=== PATIENT | female | born 1955 | race African-American/Black ===

== ENCOUNTER 2017-05-10 22:55 | Inpatient (IN) | payer OTHER, MEDICAID ==
[~2017-05-10] VITALS: Ht 162.6 cm; Wt 49.9 kg
[2017-05-11] MEDS ORDERED: ALBUTEROL (0.083%) 2.5MG/3ML NEB HHN SCH
[2017-05-11] MEDS ORDERED: ONDANSETRON HCL 4MG/2ML VIAL IV SCH
[2017-05-11] MEDS ORDERED: MORPHINE SULFATE 4 MG/ML CPJ (NOT FOR IM USE) IV SCH
[2017-05-11 00:24] LABS: BASOPHILS % 0.6 % (0.0-2.0); EOSINOPHILS % 3.3 % (0.0-5.0); HEMATOCRIT. 48.2 % (36.0-48.0); HEMOGLOBIN. 15.1 g/dL (12.0-16.0); MEAN CORPUSCULAR VOLUME 92.7 fL (81.0-99.0); MONOCYTES % 5.1 % (2.0-8.0); RED CELL DISTRIBUTION WIDTH 14.6 % (11.6-14.6)
[2017-05-11 00:40] LABS: CARBON DIOXIDE 28 mEq/L (21-32); CHLORIDE 102 mEq/L (98-107); TROPONIN I 0.15 ng/mL (0.00-0.04)
[2017-05-11] MEDS: IPRATROPIUM BROMIDE (0.02%) 0.5MG/2.5ML NEB HHN SCH ×3 (01:00→02:46)
[2017-05-11 01:42] LABS: INR 1.2; PARTIAL THROMBOPLASTIN TIME 26.3 sec (23.4-31.0); PROTHROMBIN TIME 12.3 sec (9.4-11.6)
[2017-05-11 02:28] LABS: MEAN PLATELET VOLUME 10.1 fl (7.4-10.4); PLATELET 102 x1000/uL (130-400)
[2017-05-11 09:00] VITALS: BP 135/91
[2017-05-11 12:25] VITALS: BP 116/80
[2017-05-11] MEDS ORDERED: ONDANSETRON HCL 4MG/2ML VIAL IV PRN (13:00)
[2017-05-11] MEDS ORDERED: IPRATROPIUM/ALBUTEROL 0.5-3(2.5)MG/3ML NEB INH PRN (13:00)
[2017-05-11] MEDS: AMLODIPINE 10MG TABLET PO SCH (13:00)
[2017-05-11] MEDS ORDERED: DOCUSATE SODIUM 100MG CAPSULE PO PRN (13:00)
[2017-05-11] MEDS ORDERED: ENOXAPARIN 40MG/0.4ML SYR SUBCUT SCH (13:00)
[2017-05-11] MEDS: ENOXAPARIN 30MG/0.3ML SYR SUBCUT SCH (14:00)
[2017-05-11] MEDS ORDERED: ASPIRIN 81MG EC TABLET PO SCH (14:00)
[2017-05-11 14:19] VITALS: BP 135/91
[2017-05-11] MEDS: IPRATROPIUM/ALBUTEROL 0.5-3(2.5)MG/3ML NEB INH SCH ×2 (16:16→21:19)
[2017-05-11 16:32] VITALS: BP 114/79
[2017-05-11] MEDS: SODIUM CHLORIDE 0.9% 1,000 ML IV SCH (19:05)
[2017-05-11 19:34] VITALS: BP 122/80
[2017-05-12 00:11] VITALS: BP 123/69
[2017-05-12] MEDS: IPRATROPIUM/ALBUTEROL 0.5-3(2.5)MG/3ML NEB INH SCH ×4 (02:29→22:05)
[2017-05-12 04:44] VITALS: BP 102/62
[2017-05-12] MEDS: SODIUM CHLORIDE 0.9% 1,000 ML IV SCH (05:40)
[2017-05-12 07:00] LABS: HEMATOCRIT. 47.6 % (36.0-48.0); HEMOGLOBIN. 14.5 g/dL (12.0-16.0); MEAN CORPUSCULAR HEMOGLOBIN 29.4 pg (28.0-32.0); MEAN CORPUSCULAR VOLUME 96.1 fL (81.0-99.0); MEAN PLATELET VOLUME 10.4 fl (7.4-10.4); PLATELET 90 x1000/uL (130-400); RED BLOOD CELL COUNT 4.95 mill/uL (4.2-5.4); RED CELL DISTRIBUTION WIDTH 14.6 % (11.6-14.6)
[2017-05-12 07:50] LABS: CARBON DIOXIDE 27 mEq/L (21-32); CHLORIDE 103 mEq/L (98-107)
[2017-05-12] MEDS: AMLODIPINE 10MG TABLET PO SCH ×2 (09:40→13:40)
[2017-05-12 10:02] VITALS: BP 98/68
[2017-05-12 11:22] LABS: CLARITY URINE CLOUDY (CLEAR); COLOR URINE DARK YELLOW (YELLOW); GLUCOSE URINE NEGATIVE (NEGATIVE); KETONES URINE NEGATIVE (NEGATIVE); LEUKOCYTE ESTERASE URINE 1+ (NEGATIVE); NITRITE URINE NEGATIVE (NEGATIVE); OCCULT BLOOD URINE TRACE (NEGATIVE); PROTEIN URINE 3+ (NEGATIVE); SPECIFIC GRAVITY URINE 1.022 (1.005-1.030)
[2017-05-12 11:25] LABS: PHOSPHORUS 8.5 mg/dL (2.5-4.9)
[2017-05-12 12:00] VITALS: BP 103/60
[2017-05-12 12:32] LABS: *AMPHETAMINES SCREEN URINE NEGATIVE (NEGATIVE); *BARBITURATES SCREEN URINE NEGATIVE (NEGATIVE); *BENZODIAZEPINES SCREEN URINE NEGATIVE (NEGATIVE); *COCAINE SCREEN URINE PRESUMTIVE POSITIVE (NEGATIVE); CANNABINOID URINE SCREEN NEGATIVE (NEGATIVE); METHADONE URINE SCREEN NEGATIVE (NEGATIVE); OPIATES URINE SCREEN PRESUMTIVE POSITIVE (NEGATIVE); PHENCYCLIDINE URINE SCREEN NEGATIVE (NEGATIVE)
[2017-05-12] MEDS: ENOXAPARIN 30MG/0.3ML SYR SUBCUT SCH (13:48)
[2017-05-12] MEDS: CALCIUM ACETATE 667MG CAPSULE PO SCH ×2 (13:48→17:25)
[2017-05-12] MEDS: CALCIUM CARBONATE 1250MG TABLET (500MG ELEMENTAL CALCIUM) PO SCH (13:48)
[2017-05-12] MEDS: HYDROCODONE/ACETAMINOPHEN 5/325MG TABLET PO PRN (14:10)
[2017-05-12 16:00] VITALS: BP 120/72
[2017-05-12 20:00] VITALS: BP 113/69
[2017-05-12 23:57] LABS: PLATELET ESTIMATE DECREASED
[2017-05-13] VITALS (7 sets, daily range): BP systolic 100–114; BP diastolic 61–74
[2017-05-13] MEDS: IPRATROPIUM/ALBUTEROL 0.5-3(2.5)MG/3ML NEB INH SCH ×4 (02:05→20:06)
[2017-05-13 06:38] LABS: BASOPHILS % 0.3 % (0.0-2.0); EOSINOPHILS % 1.2 % (0.0-5.0); HEMATOCRIT. 43.9 % (36.0-48.0); HEMOGLOBIN. 13.3 g/dL (12.0-16.0); LYMPHOCYTES % 8.4 % (20.0-50.0); MEAN CORPUSCULAR HEMOGLOBIN 28.5 pg (28.0-32.0); MEAN CORPUSCULAR VOLUME 94.4 fL (81.0-99.0); MEAN PLATELET VOLUME 10.8 fl (7.4-10.4); MONOCYTES % 4.6 % (2.0-8.0); NEUTROPHILS % 85.5 % (40.0-76.0); PLATELET 86 x1000/uL (130-400); RED BLOOD CELL COUNT 4.65 mill/uL (4.2-5.4); RED CELL DISTRIBUTION WIDTH 14.6 % (11.6-14.6)
[2017-05-13] MEDS: CALCIUM ACETATE 667MG CAPSULE PO SCH ×3 (07:03→17:54)
[2017-05-13] MEDS: MORPHINE SULFATE 10 MG/ML CPJ IV PRN (08:36)
[2017-05-13] MEDS: ENOXAPARIN 30MG/0.3ML SYR SUBCUT SCH (09:00)
[2017-05-13] MEDS ORDERED: BACITRACIN 50,000 UNITS/VIAL ONE (10:16)
[2017-05-13] MEDS ORDERED: SODIUM CHLORIDE 0.9% 10ML VIAL ONE ×2 (10:16→10:24)
[2017-05-13] MEDS ORDERED: BACITRACIN ZINC 15GM TUBE TOP ONE (10:16)
[2017-05-13] MEDS ORDERED: VANCOMYCIN HCL 500 MG/VIAL ONE (10:16)
[2017-05-13] MEDS ORDERED: NORMAL SALINE 0.9% 10 ML SYR ONE (10:17)
[2017-05-13] MEDS ORDERED: PHENYLEPHRINE HCL 10 MG/ML 1ML (IV VIAL) IV ONE (10:24)
[2017-05-13] MEDS ORDERED: ESMOLOL HCL 10MG/ML 10ML VIAL IV ONE (10:30)
[2017-05-13] MEDS ORDERED: LEVOFLOXACIN 500MG PREMIX 100 ML IV ONE (10:32)
[2017-05-13] MEDS ORDERED: ROCURONIUM BROMIDE 10MG/ML VIAL 5ML IV ONE (10:42)
[2017-05-13] MEDS ORDERED: DEXAMETHASONE 4MG/ML 1ML VIAL ONE (11:01)
[2017-05-13] MEDS ORDERED: ONDANSETRON HCL 4MG/2ML VIAL ONE (11:05)
[2017-05-13] MEDS ORDERED: MORPHINE SULFATE 4 MG/ML CPJ (NOT FOR IM USE) IV PRN (11:45)
[2017-05-13] MEDS ORDERED: FUROSEMIDE 40MG/4ML VIAL IVP NR (17:45)
[2017-05-13] MEDS: CEFAZOLIN 1000MG PREMIX 50 ML IV SCH ×2 (17:53→20:48)
[2017-05-13] MEDS: CALCIUM CARBONATE 1250MG TABLET (500MG ELEMENTAL CALCIUM) PO SCH (17:54)
[2017-05-14] VITALS (7 sets, daily range): BP systolic 118–140; BP diastolic 71–88
[2017-05-14] MEDS: IPRATROPIUM/ALBUTEROL 0.5-3(2.5)MG/3ML NEB INH SCH ×4 (01:47→21:12)
[2017-05-14 06:23] LABS: HEMATOCRIT. 33.8 % (36.0-48.0); HEMOGLOBIN. 10.5 g/dL (12.0-16.0); MEAN CORPUSCULAR HEMOGLOBIN 28.8 pg (28.0-32.0); MEAN CORPUSCULAR VOLUME 92.8 fL (81.0-99.0); MEAN PLATELET VOLUME 9.8 fl (7.4-10.4); PLATELET 101 x1000/uL (130-400); RED BLOOD CELL COUNT 3.64 mill/uL (4.2-5.4); RED CELL DISTRIBUTION WIDTH 14.2 % (11.6-14.6)
[2017-05-14 06:59] LABS: HEPATITIS B SURFACE ANTIGEN NEGATIVE
[2017-05-14 07:27] LABS: HEPATITIS B CORE AB IGM NEGATIVE
[2017-05-14 07:29] LABS: HEPATITIS A AB IGM NEGATIVE (NEGATIVE)
[2017-05-14 07:50] LABS: PHOSPHORUS 4.9 mg/dL (2.5-4.9)
[2017-05-14] MEDS: CALCIUM ACETATE 667MG CAPSULE PO SCH ×3 (07:50→18:36)
[2017-05-14] MEDS: ENOXAPARIN 30MG/0.3ML SYR SUBCUT SCH (07:50)
[2017-05-14] MEDS: CALCIUM CARBONATE 1250MG TABLET (500MG ELEMENTAL CALCIUM) PO SCH (09:00)
[2017-05-14] MEDS: FUROSEMIDE 40MG/4ML VIAL IVP SCH (10:58)
[2017-05-14 11:04] LABS: NUCLEATED RED BLOOD CELLS 1 /100 WBC; PLATELET ESTIMATE DECREASED
[2017-05-15] MEDS: IPRATROPIUM/ALBUTEROL 0.5-3(2.5)MG/3ML NEB INH SCH ×4 (02:31→21:05)
[2017-05-15 04:00] VITALS: BP 155/71
[2017-05-15] MEDS: MORPHINE SULFATE 10 MG/ML CPJ IV PRN (05:15)
[2017-05-15 07:34] VITALS: BP 128/83
[2017-05-15 07:49] LABS: HEMATOCRIT. 33.2 % (36.0-48.0); HEMOGLOBIN. 10.5 g/dL (12.0-16.0); MEAN CORPUSCULAR HEMOGLOBIN 28.6 pg (28.0-32.0); MEAN CORPUSCULAR VOLUME 90.3 fL (81.0-99.0); MEAN PLATELET VOLUME 10.3 fl (7.4-10.4); PLATELET 139 x1000/uL (130-400); RED BLOOD CELL COUNT 3.68 mill/uL (4.2-5.4); RED CELL DISTRIBUTION WIDTH 14.3 % (11.6-14.6)
[2017-05-15] MEDS: CALCIUM ACETATE 667MG CAPSULE PO SCH ×3 (07:50→18:19)
[2017-05-15 08:46] LABS: CARBON DIOXIDE 22 mEq/L (21-32); CHLORIDE 91 mEq/L (98-107)
[2017-05-15] MEDS: CALCIUM CARBONATE 1250MG TABLET (500MG ELEMENTAL CALCIUM) PO SCH (09:00)
[2017-05-15 09:07] LABS: COMPLEMENT C3 83 mg/dL (82-167)
[2017-05-15 12:00] VITALS: BP 163/105
[2017-05-15] MEDS: HYDROCODONE/ACETAMINOPHEN 5/325MG TABLET PO PRN (15:11)
[2017-05-15] MEDS: FUROSEMIDE 40MG/4ML VIAL IVP SCH (15:11)
[2017-05-15] MEDS: ENOXAPARIN 30MG/0.3ML SYR SUBCUT SCH (15:12)
[2017-05-15 15:39] VITALS: BP 138/92
[2017-05-15 16:35] LABS: PLATELET ESTIMATE NORMAL
[2017-05-15 19:12] LABS: ANTI-NUCLEAR ANTIBODIES DIRECT Negative (Negative)
[2017-05-15 20:00] VITALS: BP 115/74
[2017-05-16 00:10] VITALS: BP 153/97
[2017-05-16] MEDS: CLONIDINE 0.1MG TABLET PO PRN (00:35)
[2017-05-16] MEDS: IPRATROPIUM/ALBUTEROL 0.5-3(2.5)MG/3ML NEB INH SCH ×4 (01:27→20:23)
[2017-05-16 04:53] VITALS: BP 130/89
[2017-05-16 07:35] VITALS: BP 128/88
[2017-05-16] MEDS: CALCIUM ACETATE 667MG CAPSULE PO SCH ×3 (08:57→17:35)
[2017-05-16] MEDS: CALCIUM CARBONATE 1250MG TABLET (500MG ELEMENTAL CALCIUM) PO SCH (08:57)
[2017-05-16] MEDS: ENOXAPARIN 30MG/0.3ML SYR SUBCUT SCH (09:00)
[2017-05-16 11:53] VITALS: BP 130/82
[2017-05-16 15:55] VITALS: BP 131/87
[2017-05-16 20:00] VITALS: BP 131/85
[2017-05-17 00:46] VITALS: BP 131/90
[2017-05-17] MEDS: IPRATROPIUM/ALBUTEROL 0.5-3(2.5)MG/3ML NEB INH SCH ×4 (01:25→20:50)
[2017-05-17 04:00] VITALS: BP 132/87
[2017-05-17 07:50] VITALS: BP 146/86
[2017-05-17] MEDS: CALCIUM CARBONATE 1250MG TABLET (500MG ELEMENTAL CALCIUM) PO SCH (08:30)
[2017-05-17] MEDS: CALCIUM ACETATE 667MG CAPSULE PO SCH ×3 (08:30→17:42)
[2017-05-17] MEDS: ENOXAPARIN 30MG/0.3ML SYR SUBCUT SCH (08:31)
[2017-05-17 12:00] VITALS: BP 137/81
[2017-05-17 16:02] VITALS: BP 145/92
[2017-05-17 20:49] VITALS: BP 154/92
[2017-05-18 00:24] VITALS: BP 132/86
[2017-05-18 04:00] VITALS: BP 124/89
[2017-05-18 07:55] VITALS: BP 141/96
[2017-05-18] MEDS: IPRATROPIUM/ALBUTEROL 0.5-3(2.5)MG/3ML NEB INH SCH ×3 (08:46→21:11)
[2017-05-18] MEDS: CALCIUM CARBONATE 1250MG TABLET (500MG ELEMENTAL CALCIUM) PO SCH (08:53)
[2017-05-18] MEDS: CALCIUM ACETATE 667MG CAPSULE PO SCH ×3 (08:53→17:05)
[2017-05-18] MEDS: ENOXAPARIN 30MG/0.3ML SYR SUBCUT SCH (08:53)
[2017-05-18 12:03] VITALS: BP 132/81
[2017-05-18 15:52] VITALS: BP 156/102
[2017-05-18 20:00] VITALS: BP 150/90
[2017-05-18] MEDS: ACETAMINOPHEN 325MG TABLET PO PRN (20:51)
[2017-05-19] VITALS: BP 139/85
[2017-05-19] MEDS: IPRATROPIUM/ALBUTEROL 0.5-3(2.5)MG/3ML NEB INH SCH ×4 (03:14→21:34)
[2017-05-19 04:00] VITALS: BP 124/87
[2017-05-19 07:05] LABS: HEMATOCRIT 28.3 % (36.0-48.0); HEMOGLOBIN 8.8 g/dL (12.0-16.0); MEAN CORPUSCULAR HEMOGLOBIN 28.1 pg (28.0-32.0); MEAN CORPUSCULAR VOLUME 90.6 fL (81.0-99.0); PLATELET 178 x1000/uL (130-400); RED BLOOD CELL COUNT 3.12 mill/uL (4.2-5.4); RED CELL DISTRIBUTION WIDTH 14.8 % (11.6-14.6)
[2017-05-19] MEDS: CALCIUM ACETATE 667MG CAPSULE PO SCH ×3 (07:50→18:57)
[2017-05-19 08:00] VITALS: BP 132/89
[2017-05-19 10:11] LABS: CHLORIDE 99 mEq/L (98-107)
[2017-05-19 10:20] LABS: CARBON DIOXIDE 28 mEq/L (21-32); PHOSPHORUS 2.1 mg/dL (2.5-4.9)
[2017-05-19] MEDS ORDERED: PIPERACILLIN/TAZ 3.375G PREMIX 50 ML IV ONE (11:30)
[2017-05-19 12:00] VITALS: BP 166/97
[2017-05-19 13:26] LABS: HEMATOCRIT. 31.8 % (36.0-48.0); HEMOGLOBIN. 10.2 g/dL (12.0-16.0); MEAN CORPUSCULAR HEMOGLOBIN 29.1 pg (28.0-32.0); MEAN CORPUSCULAR VOLUME 90.3 fL (81.0-99.0); PLATELET 211 x1000/uL (130-400); RED BLOOD CELL COUNT 3.52 mill/uL (4.2-5.4); RED CELL DISTRIBUTION WIDTH 14.9 % (11.6-14.6)
[2017-05-19] MEDS: CLONIDINE 0.1MG TABLET PO PRN (13:28)
[2017-05-19] MEDS: ENOXAPARIN 30MG/0.3ML SYR SUBCUT SCH (13:29)
[2017-05-19 13:53] LABS: PLATELET ESTIMATE NORMAL
[2017-05-19] MEDS: PIPERACILLIN/TAZ 2.25G PREMIX 50 ML IV SCH ×2 (15:20→21:37)
[2017-05-19 16:00] VITALS: BP 140/88
[2017-05-19] MEDS ORDERED: VANCOMYCIN 1 G PREMIX 200 ML IV SCH (16:00)
[2017-05-19 20:00] VITALS: BP 135/83
[2017-05-20] MEDS: ACETAMINOPHEN 325MG TABLET PO PRN ×2 (01:53→20:37)
[2017-05-20] MEDS: IPRATROPIUM/ALBUTEROL 0.5-3(2.5)MG/3ML NEB INH SCH ×4 (02:00→20:53)
[2017-05-20 04:00] VITALS: BP 116/75
[2017-05-20] MEDS: PIPERACILLIN/TAZ 2.25G PREMIX 50 ML IV SCH ×3 (06:02→21:55)
[2017-05-20 07:40] LABS: BASOPHILS % 0.4 % (0.0-2.0); EOSINOPHILS % 1.4 % (0.0-5.0); HEMATOCRIT. 32.5 % (36.0-48.0); HEMOGLOBIN. 10.2 g/dL (12.0-16.0); LYMPHOCYTES % 7.5 % (20.0-50.0); MEAN CORPUSCULAR HEMOGLOBIN 28.7 pg (28.0-32.0); MEAN CORPUSCULAR VOLUME 91.4 fL (81.0-99.0); MEAN PLATELET VOLUME 9.4 fl (7.4-10.4); MONOCYTES % 6.1 % (2.0-8.0); NEUTROPHILS % 84.6 % (40.0-76.0); PLATELET 223 x1000/uL (130-400); RED BLOOD CELL COUNT 3.55 mill/uL (4.2-5.4); RED CELL DISTRIBUTION WIDTH 14.6 % (11.6-14.6)
[2017-05-20 07:52] VITALS: BP 101/69
[2017-05-20] MEDS: ENOXAPARIN 30MG/0.3ML SYR SUBCUT SCH (08:17)
[2017-05-20] MEDS: CALCIUM ACETATE 667MG CAPSULE PO SCH ×2 (08:17→13:28)
[2017-05-20 12:00] VITALS: BP 106/79
[2017-05-20 16:00] VITALS: BP 116/78
[2017-05-20 20:00] VITALS: BP 128/83
[2017-05-20] MEDS: SODIUM CHLORIDE 0.9% 1,000 ML IV SCH (20:38)
[2017-05-21] VITALS: BP 109/71
[2017-05-21] MEDS: IPRATROPIUM/ALBUTEROL 0.5-3(2.5)MG/3ML NEB INH SCH ×3 (01:45→21:18)
[2017-05-21 04:00] VITALS: BP 118/78
[2017-05-21] MEDS: PIPERACILLIN/TAZ 2.25G PREMIX 50 ML IV SCH ×3 (06:12→21:49)
[2017-05-21 07:11] LABS: HEMATOCRIT. 29.7 % (36.0-48.0); HEMOGLOBIN. 9.1 g/dL (12.0-16.0); MEAN CORPUSCULAR HEMOGLOBIN 27.8 pg (28.0-32.0); MEAN CORPUSCULAR VOLUME 90.7 fL (81.0-99.0); MEAN PLATELET VOLUME 9.6 fl (7.4-10.4); PLATELET 248 x1000/uL (130-400); RED BLOOD CELL COUNT 3.27 mill/uL (4.2-5.4); RED CELL DISTRIBUTION WIDTH 14.6 % (11.6-14.6)
[2017-05-21 07:52] VITALS: BP 109/79
[2017-05-21] MEDS: ENOXAPARIN 30MG/0.3ML SYR SUBCUT SCH (09:00)
[2017-05-21] MEDS ORDERED: VANCOMYCIN 1250MG in DEXTROSE 5% WATER 250ML IV NR ×2 (10:00→14:00)
[2017-05-21 11:56] VITALS: BP 121/84
[2017-05-21 13:35] LABS: PLATELET ESTIMATE NORMAL
[2017-05-21 16:13] VITALS: BP 118/75
[2017-05-21] MEDS ORDERED: GUAIFENESIN 200MG/10ML SUGAR FREE UDC PO PRN (19:00)
[2017-05-21] MEDS: SODIUM CHLORIDE 0.9% 1,000 ML IV SCH (19:06)
[2017-05-21 20:17] VITALS: BP 124/88
[2017-05-22 00:16] VITALS: BP 123/85
[2017-05-22 04:00] VITALS: BP 120/79
[2017-05-22] MEDS: PIPERACILLIN/TAZ 2.25G PREMIX 50 ML IV SCH (05:43)
[2017-05-22 06:27] LABS: CLARITY URINE TURBID (CLEAR); COLOR URINE YELLOW (YELLOW); GLUCOSE URINE NEGATIVE (NEGATIVE); KETONES URINE NEGATIVE (NEGATIVE); LEUKOCYTE ESTERASE URINE 3+ (NEGATIVE); NITRITE URINE NEGATIVE (NEGATIVE); OCCULT BLOOD URINE 1+ (NEGATIVE); PH URINE 5.5 (4.5-8.0); PROTEIN URINE 3+ (NEGATIVE); SPECIFIC GRAVITY URINE 1.021 (1.005-1.030)
[2017-05-22 07:29] VITALS: BP 125/90
[2017-05-22] MEDS: IPRATROPIUM/ALBUTEROL 0.5-3(2.5)MG/3ML NEB INH SCH (07:40)
[2017-05-22] MEDS: ENOXAPARIN 30MG/0.3ML SYR SUBCUT SCH (09:09)
[2017-05-22 11:44] VITALS: BP 123/81
[2017-05-22 11:51] VITALS: BP 123/81
== END 2017-05-22 12:20 | disposition home or self-care (01) | DRG 308 ==
LOC: ER 22:55 → 6WST 05-11 01:21 → EDBEDREQ 05-11 01:25 → ENRESERV 05-11 07:43
PROVIDERS: ADMIT Hospitalist; ATTEND Hospitalist
PROC: 0QH736Z Insertion of Intramedullary Internal Fixation Device into Left Upper Femur, Percutaneous Approach (ICD-10-PCS; principal; 2017-05-13 10:00)
PROC: 02H633Z Insertion of Infusion Device into Right Atrium, Percutaneous Approach (ICD-10-PCS; 2017-05-15)
PROC: B244YZZ Ultrasonography of Right Heart using Other Contrast (ICD-10-PCS; 2017-05-15)
PROC: B5181ZA Fluoroscopy of Superior Vena Cava using Low Osmolar Contrast, Guidance (ICD-10-PCS; 2017-05-15)
PROC: 5A1D70Z Performance of Urinary Filtration, Intermittent, Less than 6 Hours Per Day (ICD-10-PCS; 2017-05-15)
PROC: 5A1D70Z Performance of Urinary Filtration, Intermittent, Less than 6 Hours Per Day (ICD-10-PCS; 2017-05-17)
DX: S72.145A Nondisplaced intertrochanteric fracture of left femur, initial encounter for closed fracture (principal); J96.20 Acute and chronic respiratory failure, unspecified whether with hypoxia or hypercapnia; N17.0 Acute kidney failure with tubular necrosis; G92 Toxic encephalopathy; N17.9 Acute kidney failure, unspecified; I12.0 Hypertensive chronic kidney disease with stage 5 chronic kidney disease or end stage renal disease; Z99.81 Dependence on supplemental oxygen; J44.1 Chronic obstructive pulmonary disease with (acute) exacerbation; E83.51 Hypocalcemia; D63.8 Anemia in other chronic diseases classified elsewhere; I16.0 Hypertensive urgency; D72.829 Elevated white blood cell count, unspecified; M19.90 Unspecified osteoarthritis, unspecified site; F17.210 Nicotine dependence, cigarettes, uncomplicated; N18.6 End stage renal disease; W01.0XXA Fall on same level from slipping, tripping and stumbling without subsequent striking against object, initial encounter; Z88.6 Allergy status to analgesic agent; Y93.89 Activity, other specified; Y92.89 Other specified places as the place of occurrence of the external cause; Y99.8 Other external cause status
CPT/HCPCS: 36415; 36556; 71010; 72192; 73502; 73700; 76770; 76937; 77001; 80048; 80053; 80202; 80305; 81001; 82040; 83690; 83735; 83880; 83970; 84100; 84484; 85025; 85027; 85610; 85730; 86038; 86160; 86705; 86706; 86709; 86803; 86850; 86900; 87040; 87086; 87340; 93970; 94640; 94664; 96374; 96375; 97110; 97116; 97162; 97166; 97530; 99285; A4216; C1713; C1752; C1893; J0690; J1100; J1650; J1940; J1956; J2270; J2370; J2405; J2543; J3370; J3490; J7030; J7050; J7060; J7611; J7620; A4315

== ENCOUNTER 2017-08-23 01:06 | Emergency (ER) | payer MEDICAID ==
[~2017-08-23] VITALS: Ht 162.6 cm; Wt 54.0 kg
[2017-08-23] MEDS ORDERED: CLONIDINE 0.1MG TABLET PO ONE (06:30)
[2017-08-23] MEDS ORDERED: TRAMADOL 50MG TABLET PO ONE (06:30)
[2017-08-23 06:40] LABS: *AMPHETAMINES SCREEN URINE NEGATIVE (NEGATIVE); *BARBITURATES SCREEN URINE NEGATIVE (NEGATIVE); *BENZODIAZEPINES SCREEN URINE NEGATIVE (NEGATIVE); *COCAINE SCREEN URINE PRESUMTIVE POSITIVE (NEGATIVE); CANNABINOID URINE SCREEN NEGATIVE (NEGATIVE); METHADONE URINE SCREEN NEGATIVE (NEGATIVE); OPIATES URINE SCREEN NEGATIVE (NEGATIVE); PHENCYCLIDINE URINE SCREEN NEGATIVE (NEGATIVE)
[2017-08-23] MEDS ORDERED: AMMONIA INHALATION 1EA INH ONE (11:00)
[2017-08-23 13:33] VITALS: BP 121/62
== END 2017-08-23 13:45 | disposition home or self-care (01) ==
LOC: ER 01:06
DX: S09.8XXA Other specified injuries of head, initial encounter (principal); F14.10 Cocaine abuse, uncomplicated; I10 Essential (primary) hypertension; Z86.73 Personal history of transient ischemic attack (TIA), and cerebral infarction without residual deficits; Z88.5 Allergy status to narcotic agent; Z91.14 Patient's other noncompliance with medication regimen; Z91.19 Patient's noncompliance with other medical treatment and regimen; W18.39XA Other fall on same level, initial encounter; Y93.89 Activity, other specified; Y92.89 Other specified places as the place of occurrence of the external cause; Y99.8 Other external cause status
CPT/HCPCS: 70450; 72125; 72170; 72192; 80305; 99285; Z7610

== ENCOUNTER 2017-08-23 15:30 | Emergency (ER) | payer MEDICAID ==
[~2017-08-23] VITALS: Ht 157.5 cm; Wt 50.0 kg
[2017-08-24 03:44] VITALS: BP 141/97
== END 2017-08-24 10:30 | disposition home or self-care (01) ==
LOC: ER 15:30
DX: Z59.0 Homelessness (principal); I10 Essential (primary) hypertension; F17.200 Nicotine dependence, unspecified, uncomplicated; F14.10 Cocaine abuse, uncomplicated; F15.10 Other stimulant abuse, uncomplicated; Z88.5 Allergy status to narcotic agent
CPT/HCPCS: 99283